=== PATIENT | male | born 1965 | race Caucasian/White ===

== ENCOUNTER 2017-01-11 01:39 | Inpatient (IN) | payer OTHER ==
--- NOTE | 2017-01-11 01:51 | HP ---
Admission [facility] Chief Complaint: i need help to stop using heroin Allergies/Adverse Reactions: Allergies Allergy/AdvReac Type Severity Reaction Status Date / Time Penicillins Allergy Verified 01/10/17 19:12 History of Present Illness: this 51 years old male with heroin dependence,withdrawal symptom,last detox 2006 at [facility] nicotine dependence depression longest period of sobriety 2 years Exam Limitations: No Limitations - Ebola screening Have you traveled outside of the country in the last 21 days: No - Review of Systems Constitutional: Chills, Diaphoresis, Loss of Appetite, Malaise, Night Sweats, Changes in sleep, Weakness, Unintentional Wgt. Loss EENT: reports: Tearing, Nose Congestion Respiratory: reports: Other (asthma) Cardiac: reports: Palpitations GI: reports: Diarrhea, Nausea, Vomiting, Abdominal cramping : reports: No Symptoms Reported Musculoskeletal: reports: Back Pain, Joint Pain, Muscle Pain, Joint Stiffness Neuro: reports: Headache, Tremors Endocrine: reports: No Symptoms Reported Hematology: reports: No Symptoms Reported Psychiatric: reports: Depressed Patient History - Patient Medical History Hx Anemia: No Hx Asthma: Yes (on albuterol and advair) Hx Chronic Obstructive Pulmonary Disease (COPD): No Hx Cancer: No Hx Cardiac Disorders: No Hx Congestive Heart Failure: No Hx Hypertension: No Hx Hypercholesterolemia: No Hx Pacemaker: No HX Cerebrovascular Accident: No Hx Seizures: No Hx Dementia: No Hx Diabetes: No Hx Gastrointestinal Disorders: No Hx Liver Disease: No Hx Genitourinary Disorders: No Hx Sexually Transmitted Disorders: No Hx Renal Disease (ESRD): No Hx Thyroid Disease: No Hx Human Immunodeficiency Virus (HIV): No (last 11/16 negative) Hx Hepatitis C: No Hx Depression: Yes (on med) Hx Suicide Attempt: No Hx Bipolar Disorder: No Hx Schizophrenia: No Other Medical History: no suicidal,o homicidal - Patient Surgical History Hx Orthopedic Surgery: Yes (left knee 20 years ago in [place]) Other Surgical History: fx of mandible 40 years ago - PPD History Previous Implant?: Yes Documented Results: Negative w/o proof Implanted On Prior [facility] Admission?: No PPD to be Administered?: Yes - Smoking Cessation Smoking history: Current every day smoker Have you smoked in the past 12 months: Yes Aproximately how many cigarettes per day: 25 Cigars Per Day: 0 Hx Chewing Tobacco Use: No Initiated information on smoking cessation: Yes 'Breaking Loose' booklet given: 01/11/17 - Substance & Tx. History Hx Alcohol Use: No Hx Substance Use: Yes Substance Use Type: Heroin Hx Substance Use Treatment: Yes (2006) - Substances Abused Heroin Route: Inhalation Frequency: Daily Amount used: 20 to 30 bags Age of first use: 16 Date of Last Use: 01/10/17 Marijuana/Hashish Route: Smoking Frequency: 1-2 times per week Amount used: 10$ Age of first use: 10 Date of Last Use: 01/09/17 Family Disease History - Family Disease History Family History: Denies Admission Physical Exam [facility] - Vital Signs Vital Signs: Vital Signs Temperature 96.4 F L 01/11/17 02:02 Pulse Rate 85 01/11/17 02:02 Respiratory Rate 20 01/11/17 02:02 Blood Pressure 156/84 01/11/17 02:02 O2 Sat by Pulse Oximetry (%) - Physical General Appearance: Yes: Moderate Distress, Tremorous, Irritable, Sweating, Anxious HEENTM: Yes: Normal ENT Inspection, Normocephalic, Pharynx Normal, Nasal Congestion, Rhinorrhea, Other (poor dental hygiene) Respiratory: Yes: Lungs Clear, Normal Breath Sounds, No Respiratory Distress Neck: Yes: Within Normal Limits, Supple, Trachea in good position Breast: Yes: Within Normal Limits Cardiology: Yes: Within Normal Limits, Regular Rhythm, Regular Rate, S1, S2 Abdominal: Yes: Within Normal Limits, Normal Bowel Sounds, Non Tender, Flat, Soft Genitourinary: Yes: Within Normal Limits Back: Yes: Muscle Spasm Musculoskeletal: Yes: Back pain, Joint Stiffness, Muscle Pain Extremities: Yes: Tremors Neurological: Yes: abalone fisherman II-XII NML intact, Fully Oriented, Alert, Motor Strength 5/5 Integumentary: Yes: Dry Lymphatic: Yes: Within Normal Limits - Diagnostic (1) Opioid dependence with withdrawal Current Visit: Yes Status: Acute (2) Nicotine dependence Current Visit: Yes Status: Acute (3) Depression Current Visit: Yes Status: Acute (4) Psoriasis Current Visit: Yes Status: Acute (5) Arthritis Current Visit: Yes Status: Acute (6) Left knee pain Current Visit: Yes Status: Acute (7) Poor dental hygiene Current Visit: Yes Status: Acute Cleared for Admission [facility] - Detox or Rehab [facility] Level of Care: Medically Managed Detox Regimen/Protocol: Methadone BHS Breath Alcohol Content Breath Alcohol Content: 0 Vital Signs - Vital Signs Vital Signs Refused: No Temperature: 96.4 F Temperature Source: Oral Pulse Rate: 85 Respiratory Rate: 20 Blood Pressure: 156/84 BP Location: Left Arm - Height Height: 5 ft 7 in - Weight Weight: 184 lb Weight Measurement Method: Standing Scale Body Mass Index (BMI): 28.8 Urine Drug Screen - Test Device Lot Number: [id number] Expiration Date: 09/29/18 - Control Is Test Valid: Yes - Results Drug Screen Negative: No Urine Drug Screen Results: THC-Marijuana, OPI-Opiates, OXY-Oxycodone
[2017-01-11 01:57] VITALS: BMI 28.8
[2017-01-11] MEDS ORDERED: MENTHOL/PHENOL 1 EACH UD MM PRN (02:13)
[2017-01-11] MEDS ORDERED: guaiFENesin/D-METHORPHAN HB 10 ML UNIT-DOSE CUPS PO PRN (02:13)
[2017-01-11] MEDS ORDERED: P-EPHED 60MG/TRIPROLIDI 2.5MG TABLET PO PRN (02:13)
[2017-01-11] MEDS ORDERED: MAG HYDROX/AL HYDROX/SIMETH 30 ML UNIT-DOSE CUP PO PRN (02:13)
[2017-01-11] MEDS ORDERED: NICOTINE POLACRILEX 2 MG GUM BUC PRN (02:13)
[2017-01-11] MEDS ORDERED: MAGNESIUM HYDROX 2400MG/30ML ORAL SUSPENSION 30 ML CUP PO PRN (02:13)
[2017-01-11] MEDS ORDERED: MAGNESIUM CITRATE 300 ML BOTTLE PO PRN (02:13)
[2017-01-11] MEDS ORDERED: LOPERAMIDE HCL 2 MG CAPSULE PO PRN (02:13)
[2017-01-11] MEDS ORDERED: METHADONE HCL 10 MG TABLET (FOR DETOX USE ONLY) PO ONE ×3 (02:13→23:00)
[2017-01-11] MEDS ORDERED: ALBUTEROL SO4 6.7 GM HFA INHALER IH PRN (02:17)
[2017-01-11] MEDS ORDERED: ALBUTEROL SO4 2.5/IPRATROPIUM 0.5 INH SOL 3 ML VIAL.NEB. NEB PRN (02:19)
[2017-01-11] MEDS: diazePAM 5 MG TABLET PO PRN ×3 (02:50→23:10)
[2017-01-11] MEDS ORDERED: BUDESONIDE/FORMETEROL FUMARATE 80/4.5 mcg INHALER IH SCH (10:00)
--- NOTE | 2017-01-11 10:35 | PN ---
[facility] Progress Note Note: PT ADMITTED EARLY THIS MORNING. ALERT O X 3. PT IN DAY ROOM HAVING BREAKFAST DURING ROUNDS. ANXIETY,SLIGHT TREMORS,SWEATS. Vital Signs Temperature 97.5 F L 01/11/17 09:40 Pulse Rate 71 01/11/17 09:40 Respiratory Rate 18 01/11/17 09:40 Blood Pressure 143/87 01/11/17 09:40 O2 Sat by Pulse Oximetry (%) Laboratory Last Values WBC 7.3 K/mm3 (4.0-10.0) 01/11/17 06:00 RBC 4.35 M/mm3 (4.00-5.60) 01/11/17 06:00 Hgb 12.7 GM/dL (11.7-16.9) 01/11/17 06:00 Hct 38.4 % (35.4-49) 01/11/17 06:00 MCV 88.5 fl (80-96) 01/11/17 06:00 MCHC 33.1 g/dl (32.0-35.9) 01/11/17 06:00 RDW 14.2 % (11.9-15.9) 01/11/17 06:00 Plt Count 219 K/MM3 (134-434) 01/11/17 06:00 MPV 8.9 fl (7.5-11.1) 01/11/17 06:00 Sodium 144 mmol/L (136-145) 01/11/17 06:00 Potassium 4.4 mmol/L (3.5-5.1) 01/11/17 06:00 Chloride 105 mmol/L (98-107) 01/11/17 06:00 Carbon Dioxide 33 mmol/L (21-32) H 01/11/17 06:00 Anion Gap 6 (8-16) L 01/11/17 06:00 BUN 17 mg/dL (7-18) 01/11/17 06:00 Creatinine 0.8 mg/dL (0.7-1.3) 01/11/17 06:00 Creat Clearance w eGFR > 60 (>60) 01/11/17 06:00 Random Glucose 79 mg/dL (74-106) 01/11/17 06:00 Calcium 8.5 mg/dL (8.5-10.1) 01/11/17 06:00 Total Bilirubin 0.2 mg/dL (0.2-1.0) 01/11/17 06:00 AST 14 U/L (15-37) L 01/11/17 06:00 ALT 17 U/L (12-78) 01/11/17 06:00 Alkaline Phosphatase 70 U/L (45-117) 01/11/17 06:00 Total Protein 5.6 g/dl (6.4-8.2) L 01/11/17 06:00 Albumin 3.0 g/dl (3.4-5.0) L 01/11/17 06:00 LABS NOTED PLAN:CONTINUE DETOX.
[2017-01-11] MEDS: PRENATAL VITAMINS W/ FOLIC ACID TABLET (FP) PO SCH (10:37)
[2017-01-11] MEDS: NICOTINE 21 MG/24 HOURS TOPICAL PATCH TD SCH (10:54)
[2017-01-11] MEDS ORDERED: BUDESONIDE/FORMETEROL FUMARATE 160/4.5 mcg INHALER IH SCH (11:00)
[2017-01-11 11:05] LABS: MCH 29.3 pg (25.7-33.7); MCHC 33.1 g/dl (32.0-35.9); MEAN CELL VOLUME 88.5 fl (80-96); MEAN PLT VOLUME 8.9 fl (7.5-11.1); PLATELET COUNT 219 K/MM3 (134-434); RDW 14.2 % (11.9-15.9); WHITE BLOOD COUNT 7.3 K/mm3 (4.0-10.0)
[2017-01-11 11:12] LABS: ALK PHOS 70 U/L (45-117); ANION GAP 6 (8-16); BILIRUBIN,TOTAL 0.2 mg/dL (0.2-1.0); CALCIUM 8.5 mg/dL (8.5-10.1); CO2 33 mmol/L (21-32); CREATININE 0.8 mg/dL (0.7-1.3); GLUCOSE,RANDOM 79 mg/dL (74-106); SGOT/AST 14 U/L (15-37); SGPT/ALT 17 U/L (12-78); TOT PROT 5.6 g/dl (6.4-8.2)
[2017-01-11] MEDS: FLUOCINONIDE 0.05% CREAM (60 GM TUBE) TP SCH ×2 (12:19→22:31)
--- NOTE | 2017-01-11 12:35 | EKG ---
Test Reason : Blood Pressure : / mmHG Vent. Rate : 075 BPM Atrial Rate : 075 BPM P-R Int : 172 ms QRS Dur : 094 ms QT Int : 392 ms P-R-T Axes : 053 058 039 degrees QTc Int : 437 ms NORMAL SINUS RHYTHM NORMAL ECG NO PREVIOUS ECGS AVAILABLE Confirmed by OSCAR STEELE MD ([id number]) on 01/11/2017 12:35:26 PM Referred By: Confirmed By:OSCAR STEELE MD
[2017-01-11 16:08] LABS: URINE APPEARANCE CLEAR; URINE BILIRUBIN NEGATIVE (NEGATIVE); URINE BLOOD NEGATIVE (NEGATIVE); URINE COLOR YELLOW; URINE GLUCOSE (UA) NEGATIVE (NEGATIVE); URINE KETONE NEGATIVE (NEGATIVE); URINE LEUK ESTERASE NEGATIVE (NEGATIVE); URINE NITRITE NEGATIVE (NEGATIVE); URINE PROTEIN NEGATIVE (NEGATIVE); URINE UROBILINOGEN NEGATIVE E.U./dl (0.2-1.0)
--- NOTE | 2017-01-11 18:30 | CONSULT ---
[facility] Psychiatric Consult - Data Date of interview: 01/11/17 Admission source: [facility] Identifying data: First admission to [facility] for this 51 y/o male seeking detox treatment on for heroin and marijuana dependence.Patient is ,a father of four,homeless,unemployed and deprived of any source of income. Substance Abuse History: - Smoking Cessation. Smoking history: Current every day smoker. Have you smoked in the past 12 months: Yes. Aproximately how many cigarettes per day: 25. Cigars Per Day: 0. Hx Chewing Tobacco Use: No. Initiated information on smoking cessation: Yes. 'Breaking Loose' booklet given : 01/11/17. - Substance & Tx. History. Hx Alcohol Use: No. Hx Substance Use: Yes. Substance Use Type: Heroin. Hx Substance Use Treatment: Yes (2006). - Substances Abused. Heroin. Route: Inhalation. Frequency: Daily. Amount used: 20 to 30 bags. Age of first use: 16. Date of Last Use: 01/10/17. Marijuana/Hashish. Route: Smoking. Frequency: 1-2 times per week. Amount used : 10$. Age of first use: 10. Date of Last Use: 01/09/17. Patient confirmed. Medical History: Bronchial asthma,arthritis and a history of orthosurgery for fracture of left knee (20 years ago)/fracture of mandible about 40 years ago. Psychiatric History: No history of psychiatric hospitalizations.Prescribed effexor 75 mg po bid by his primary care doctor.Diagnosed with MDD.Mr Heaton denies history of suicide attempts. Physical/Sexual Abuse/Trauma History: Patient denies. Additional Comment: Urine Drug Screen Results: THC-Marijuana, OPI-Opiates, OXY- Oxycodone.Noted. Mental Status Exam - Mental Status Exam Alert and Oriented to: Time, Place, Person Cognitive Function: Good Patient Appearance: Disheveled Mood: Nervous, Withdrawn, Anxious, Apprehensive Affect: Mood Congruent Patient Behavior: Fatigued, Appropriate, Cooperative Speech Pattern: Clear Voice Loudness: Normal Thought Process: Goal Oriented Thought Disorder: Not Present Hallucinations: Denies Suicidal Ideation: Denies Homicidal Ideation: Denies Insight/Judgement: Poor Sleep: Fair Appetite: Good Muscle strength/Tone: Normal Gait/Station: Other (walks with cane.) Psychiatric Findings - Problem List ([place] 1, 2,3) (1) Opioid dependence with withdrawal Current Visit: Yes Status: Acute (2) Nicotine dependence Current Visit: Yes Status: Acute (3) Cannabis dependence Current Visit: Yes Status: Acute (4) Substance induced mood disorder Current Visit: Yes Status: Acute (5) Depressive disorder Current Visit: Yes Status: Chronic Comment: History. (6) Arthritis Current Visit: Yes Status: Acute (7) Psoriasis Current Visit: Yes Status: Acute - Initial Treatment Plan Initial Treatment Plan: Psychoeducation.Detoxification.Effexor 75 mg po bid.Side effects/benefits discusssed with patient.He agrees with this careplan.Observation.No scripts needed at discharge (available supply at home and refills from outpatient provider).
[2017-01-11] MEDS: THIAMINE HCL 100 MG TABLET (FP) PO SCH (22:32)
[2017-01-11] MEDS: BUDESONIDE/FORMETEROL FUMARATE 160/4.5 mcg INHALER IH SCH (22:32)
[2017-01-11] MEDS: MONTELUKAST NA 10 MG TABLET PO SCH (22:33)
[2017-01-11] MEDS: diphenhydrAMINE HCL 50 MG CAPSULE PO PRN (22:33)
[2017-01-11] MEDS: ACETAMINOPHEN 325 MG TABLET (FP) PO PRN (22:34)
[2017-01-11] MEDS: VENLAFAXINE HCL 75 MG TABLET PO SCH (23:08)
[2017-01-12] MEDS: diazePAM 5 MG TABLET PO PRN ×3 (06:03→22:38)
[2017-01-12] MEDS ORDERED: METHADONE HCL 10 MG TABLET (FOR DETOX USE ONLY) PO ONE (10:00)
[2017-01-12] MEDS: PRENATAL VITAMINS W/ FOLIC ACID TABLET (FP) PO SCH (10:38)
[2017-01-12] MEDS: VENLAFAXINE HCL 75 MG TABLET PO SCH ×2 (10:38→22:38)
[2017-01-12] MEDS: BUDESONIDE/FORMETEROL FUMARATE 160/4.5 mcg INHALER IH SCH ×2 (10:38→22:38)
[2017-01-12] MEDS: FLUOCINONIDE 0.05% CREAM (60 GM TUBE) TP SCH ×2 (10:38→23:11)
[2017-01-12] MEDS: NICOTINE 21 MG/24 HOURS TOPICAL PATCH TD SCH (10:39)
[2017-01-12] MEDS: ACETAMINOPHEN 325 MG TABLET (FP) PO PRN ×2 (10:40→22:41)
--- NOTE | 2017-01-12 11:25 | PN ---
BHS COWS - Scale Resting Pulse: 0= [place] 80 or Below Sweatin= Chills/Flushing Restless Observation: 3= Extraneous Movement Pupil Size: 2= Moderately Dilated Bone or Joint Aches: 4=Acute Joint/Muscle Pain Runny Nose/ Eye Tearin= Nasal Congestion GI Upset > 30mins: 1= Stomach Cramp Tremor Observation of Outstretched Hands: 1= Tremor [place], Not Seen Yawning Observation: 1= 1-2x During Session Anxiety or Irritability: 1=Feels Anxious/Irritable Goose Flesh Skin: 0=Smooth Skin COWS Score: 15 S Progress Note (SOAP) Subjective: ANXIETY,SWEATS/CHILLS,FATIGUE,INTERMITTENT SLEEP. Objective: Vital Signs Temperature 97.8 F 01/12/17 09:41 Pulse Rate 67 01/12/17 09:41 Respiratory Rate 20 01/12/17 09:41 Blood Pressure 156/96 01/12/17 09:41 O2 Sat by Pulse Oximetry (%) Laboratory Last Values WBC 7.3 K/mm3 (4.0-10.0) 01/11/17 06:00 RBC 4.35 M/mm3 (4.00-5.60) 01/11/17 06:00 Hgb 12.7 GM/dL (11.7-16.9) 01/11/17 06:00 Hct 38.4 % (35.4-49) 01/11/17 06:00 MCV 88.5 fl (80-96) 01/11/17 06:00 MCHC 33.1 g/dl (32.0-35.9) 01/11/17 06:00 RDW 14.2 % (11.9-15.9) 01/11/17 06:00 Plt Count 219 K/MM3 (134-434) 01/11/17 06:00 MPV 8.9 fl (7.5-11.1) 01/11/17 06:00 Sodium 144 mmol/L (136-145) 01/11/17 06:00 Potassium 4.4 mmol/L (3.5-5.1) 01/11/17 06:00 Chloride 105 mmol/L (98-107) 01/11/17 06:00 Carbon Dioxide 33 mmol/L (21-32) H 01/11/17 06:00 Anion Gap 6 (8-16) L 01/11/17 06:00 BUN 17 mg/dL (7-18) 01/11/17 06:00 Creatinine 0.8 mg/dL (0.7-1.3) 01/11/17 06:00 Creat Clearance w eGFR > 60 (>60) 01/11/17 06:00 Random Glucose 79 mg/dL (74-106) 01/11/17 06:00 Calcium 8.5 mg/dL (8.5-10.1) 01/11/17 06:00 Total Bilirubin 0.2 mg/dL (0.2-1.0) 01/11/17 06:00 AST 14 U/L (15-37) L 01/11/17 06:00 ALT 17 U/L (12-78) 01/11/17 06:00 Alkaline Phosphatase 70 U/L (45-117) 01/11/17 06:00 Total Protein 5.6 g/dl (6.4-8.2) L 01/11/17 06:00 Albumin 3.0 g/dl (3.4-5.0) L 01/11/17 06:00 Urine Color Yellow 01/11/17 13:00 Urine Appearance Clear 01/11/17 13:00 Urine pH 5.0 (5.0-8.0) 01/11/17 13:00 Ur Specific [place] 1.021 (1.001-1.035) 01/11/17 13:00 Urine Protein Negative (NEGATIVE) 01/11/17 13:00 Urine Glucose (UA) Negative (NEGATIVE) 01/11/17 13:00 Urine Ketones Negative (NEGATIVE) 01/11/17 13:00 Urine Blood Negative (NEGATIVE) 01/11/17 13:00 Urine Nitrite Negative (NEGATIVE) 01/11/17 13:00 Urine Bilirubin Negative (NEGATIVE) 01/11/17 13:00 Urine Urobilinogen Negative E.U./dl (0.2-1.0) 01/11/17 13:00 Ur Leukocyte Esterase Negative (NEGATIVE) 01/11/17 13:00 RPR Titer Nonreactive (NONREACTIVE) 01/11/17 06:00 Assessment: 01/12/17 11:24 WITHDRAWAL SX Plan: CONTINUE DETOX
[2017-01-12] MEDS: cloNIDine HCL 0.1 MG TABLET PO SCH ×2 (13:43→22:38)
[2017-01-12] MEDS: MONTELUKAST NA 10 MG TABLET PO SCH (22:38)
[2017-01-12] MEDS: THIAMINE HCL 100 MG TABLET (FP) PO SCH (22:38)
[2017-01-13] MEDS: diazePAM 5 MG TABLET PO PRN ×3 (05:46→22:34)
[2017-01-13] MEDS: ACETAMINOPHEN 325 MG TABLET (FP) PO PRN ×3 (05:47→17:47)
[2017-01-13] MEDS: cloNIDine HCL 0.1 MG TABLET PO SCH ×2 (09:33→22:32)
[2017-01-13] MEDS: PRENATAL VITAMINS W/ FOLIC ACID TABLET (FP) PO SCH (09:34)
[2017-01-13] MEDS: VENLAFAXINE HCL 75 MG TABLET PO SCH ×2 (09:34→22:32)
[2017-01-13] MEDS: FLUOCINONIDE 0.05% CREAM (60 GM TUBE) TP SCH ×2 (09:35→23:13)
[2017-01-13] MEDS: BUDESONIDE/FORMETEROL FUMARATE 160/4.5 mcg INHALER IH SCH ×2 (09:35→22:32)
[2017-01-13] MEDS: NICOTINE 21 MG/24 HOURS TOPICAL PATCH TD SCH (09:35)
[2017-01-13] MEDS ORDERED: METHADONE HCL 5 MG TABLET (FOR DETOX USE ONLY) PO ONE (10:00)
--- NOTE | 2017-01-13 10:29 | PN ---
BHS COWS - Scale Resting Pulse: 0= [place] 80 or Below Sweatin= Chills/Flushing Restless Observation: 3= Extraneous Movement Pupil Size: 2= Moderately Dilated Bone or Joint Aches: 4=Acute Joint/Muscle Pain Runny Nose/ Eye Tearin= Nasal Congestion GI Upset > 30mins: 1= Stomach Cramp Tremor Observation of Outstretched Hands: 2= Slight Tremor Visible Yawning Observation: 2= >3x During Session Anxiety or Irritability: 2=Irritable/Anxious Goose Flesh Skin: 0=Smooth Skin COWS Score: 18 BHS Progress Note (SOAP) Subjective: ANXIETY,HEADACHE,IRRITABILITY,SWATS/CHILLS,STOMACH /LEG CRAMPS. PT NOW STATES THAT HE HAS A HX OF HTN AND WAS GIVEN MEDICATION A LONG TIME AGO BUT DON'T REMEMBER NAME AND DID NOT TAKE IT. MEANWHILE BP IS VERY ELEVATED. Objective: 01/13/17 10:28 Vital Signs 01/13/17 01/13/17 01/13/17 03:23 06:53 09:53 Temperature 97.1 F L 97.8 F Pulse Rate 67 73 Respiratory 18 16 18 Rate Blood Pressure 171/85 168/102 01/13/17 10:02 Temperature 97.8 F Pulse Rate 73 Respiratory 18 Rate Blood Pressure 168/102 Assessment: 01/13/17 10:28 WITHDRAWAL SX UNCONTROLLED BP Plan: CONTINUE DETOX HYDROCHLOROTHIAZIDE 25 MG PO DAILY
[2017-01-13] MEDS: HYDROCHLOROTHIAZIDE 25 MG TABLET (FP) PO SCH (11:14)
[2017-01-13] MEDS: IBUPROFEN 400 MG TABLET (FP) PO PRN (12:27)
[2017-01-13] MEDS: THIAMINE HCL 100 MG TABLET (FP) PO SCH (22:31)
[2017-01-13] MEDS: MONTELUKAST NA 10 MG TABLET PO SCH (23:15)
[2017-01-14] MEDS: hydrOXYzine PAMOATE 50 MG CAPSULE (FP) PO PRN (05:49)
[2017-01-14] MEDS: IBUPROFEN 400 MG TABLET (FP) PO PRN (05:49)
[2017-01-14] MEDS ORDERED: METHADONE HCL 5 MG TABLET (FOR DETOX USE ONLY) PO ONE (10:00)
[2017-01-14] MEDS: PRENATAL VITAMINS W/ FOLIC ACID TABLET (FP) PO SCH (10:34)
[2017-01-14] MEDS: cloNIDine HCL 0.1 MG TABLET PO SCH ×2 (10:34→22:39)
[2017-01-14] MEDS: HYDROCHLOROTHIAZIDE 25 MG TABLET (FP) PO SCH (10:34)
[2017-01-14] MEDS: BUDESONIDE/FORMETEROL FUMARATE 160/4.5 mcg INHALER IH SCH ×2 (10:34→22:40)
[2017-01-14] MEDS: FLUOCINONIDE 0.05% CREAM (60 GM TUBE) TP SCH ×2 (10:35→22:39)
[2017-01-14] MEDS: NICOTINE 21 MG/24 HOURS TOPICAL PATCH TD SCH (10:35)
[2017-01-14] MEDS: VENLAFAXINE HCL 75 MG TABLET PO SCH ×2 (10:35→22:39)
--- NOTE | 2017-01-14 11:52 | PN ---
BHS Progress Note (SOAP) Subjective: FATIGUE, ANXIETY, HOT/COLD SWEATS. HEADACHE RESOLVED. Objective: 01/14/17 11:52 Vital Signs 01/14/17 01/14/17 01/14/17 06:36 07:07 10:40 Temperature 98.3 F 97.3 F L Pulse Rate 71 54 L 64 Respiratory 18 16 Rate Blood Pressure 141/99 147/76 130/88 Assessment: 01/14/17 11:52 WITHDRAWAL SX Plan: CONTINUE DETOX
[2017-01-14] MEDS: THIAMINE HCL 100 MG TABLET (FP) PO SCH (22:39)
[2017-01-14] MEDS: MONTELUKAST NA 10 MG TABLET PO SCH (22:39)
[2017-01-14] MEDS: diphenhydrAMINE HCL 50 MG CAPSULE PO PRN (22:41)
[2017-01-15] MEDS: hydrOXYzine PAMOATE 50 MG CAPSULE (FP) PO PRN (05:38)
[2017-01-15] MEDS ORDERED: METHADONE HCL 10 MG TABLET (FOR DETOX USE ONLY) PO ONE (10:00)
[2017-01-15] MEDS: cloNIDine HCL 0.1 MG TABLET PO SCH ×2 (10:49→22:50)
[2017-01-15] MEDS: PRENATAL VITAMINS W/ FOLIC ACID TABLET (FP) PO SCH (10:49)
[2017-01-15] MEDS: HYDROCHLOROTHIAZIDE 25 MG TABLET (FP) PO SCH (10:49)
[2017-01-15] MEDS: VENLAFAXINE HCL 75 MG TABLET PO SCH ×2 (10:50→22:50)
[2017-01-15] MEDS: BUDESONIDE/FORMETEROL FUMARATE 160/4.5 mcg INHALER IH SCH ×2 (10:50→22:51)
[2017-01-15] MEDS: FLUOCINONIDE 0.05% CREAM (60 GM TUBE) TP SCH ×2 (10:50→22:51)
[2017-01-15] MEDS: NICOTINE 21 MG/24 HOURS TOPICAL PATCH TD SCH (10:50)
--- NOTE | 2017-01-15 16:24 | PN ---
S Progress Note (SOAP) Subjective: Tremors, back ache, Interrupted sleep. Objective: PT. A & O X 3, OBSERVED AMBULATING ON UNIT. 01/15/17 16:23 Vital Signs Temperature 97.4 F L 01/15/17 13:32 Pulse Rate 86 01/15/17 13:32 Respiratory Rate 18 01/15/17 13:32 Blood Pressure 120/74 01/15/17 13:32 O2 Sat by Pulse Oximetry (%) Laboratory Last Values WBC 7.3 K/mm3 (4.0-10.0) 01/11/17 06:00 RBC 4.35 M/mm3 (4.00-5.60) 01/11/17 06:00 Hgb 12.7 GM/dL (11.7-16.9) 01/11/17 06:00 Hct 38.4 % (35.4-49) 01/11/17 06:00 MCV 88.5 fl (80-96) 01/11/17 06:00 MCHC 33.1 g/dl (32.0-35.9) 01/11/17 06:00 RDW 14.2 % (11.9-15.9) 01/11/17 06:00 Plt Count 219 K/MM3 (134-434) 01/11/17 06:00 MPV 8.9 fl (7.5-11.1) 01/11/17 06:00 Sodium 144 mmol/L (136-145) 01/11/17 06:00 Potassium 4.4 mmol/L (3.5-5.1) 01/11/17 06:00 Chloride 105 mmol/L (98-107) 01/11/17 06:00 Carbon Dioxide 33 mmol/L (21-32) H 01/11/17 06:00 Anion Gap 6 (8-16) L 01/11/17 06:00 BUN 17 mg/dL (7-18) 01/11/17 06:00 Creatinine 0.8 mg/dL (0.7-1.3) 01/11/17 06:00 Creat Clearance w eGFR > 60 (>60) 01/11/17 06:00 Random Glucose 79 mg/dL (74-106) 01/11/17 06:00 Calcium 8.5 mg/dL (8.5-10.1) 01/11/17 06:00 Total Bilirubin 0.2 mg/dL (0.2-1.0) 01/11/17 06:00 AST 14 U/L (15-37) L 01/11/17 06:00 ALT 17 U/L (12-78) 01/11/17 06:00 Alkaline Phosphatase 70 U/L (45-117) 01/11/17 06:00 Total Protein 5.6 g/dl (6.4-8.2) L 01/11/17 06:00 Albumin 3.0 g/dl (3.4-5.0) L 01/11/17 06:00 Urine Color Yellow 01/11/17 13:00 Urine Appearance Clear 01/11/17 13:00 Urine pH 5.0 (5.0-8.0) 01/11/17 13:00 Ur Specific [place] 1.021 (1.001-1.035) 01/11/17 13:00 Urine Protein Negative (NEGATIVE) 01/11/17 13:00 Urine Glucose (UA) Negative (NEGATIVE) 01/11/17 13:00 Urine Ketones Negative (NEGATIVE) 01/11/17 13:00 Urine Blood Negative (NEGATIVE) 01/11/17 13:00 Urine Nitrite Negative (NEGATIVE) 01/11/17 13:00 Urine Bilirubin Negative (NEGATIVE) 01/11/17 13:00 Urine Urobilinogen Negative E.U./dl (0.2-1.0) 01/11/17 13:00 Ur Leukocyte Esterase Negative (NEGATIVE) 01/11/17 13:00 RPR Titer Nonreactive (NONREACTIVE) 01/11/17 06:00 Hepatitis C Antibody <0.1 s/co ratio (0.0-0.9) 01/11/17 06:00 LABS NOTED. Assessment: 01/15/17 16:24 WITHDRAWAL SYMPTOMS. Plan: CONTINUE DETOX. ADVISED PATIENT TO FOLLOW-UP WITH SALES AND OPERATIONS TRAINEE / REHAB MEDICAL PROVIDER AFTER DISCHARGE FROM DETOX FOR GENERAL MEDICAL ASSESSMENT AND FOR ANY ABNORMAL ADMISSION LAB VALUES.
[2017-01-15] MEDS: THIAMINE HCL 100 MG TABLET (FP) PO SCH (22:49)
[2017-01-15] MEDS: MONTELUKAST NA 10 MG TABLET PO SCH (22:49)
[2017-01-15] MEDS: diphenhydrAMINE HCL 50 MG CAPSULE PO PRN (22:50)
[2017-01-16] MEDS ORDERED: METHADONE HCL 5 MG TABLET (FOR DETOX USE ONLY) PO ONE (06:00)
[2017-01-16 06:44] VITALS: BP 116/83; PULSE 73; TEMP 96.6
--- NOTE | 2017-01-16 10:21 | DS ---
[facility] Detox Discharge Summary Admission Date: 01/11/17 Discharge Date: 01/16/17 - History Present History: Opioid Dependence Pertinent Past History: Asthma, mild intermittent - Physical Exam Results Vital Signs: Vital Signs Temperature 96.6 F L 01/16/17 06:43 Pulse Rate 73 01/16/17 06:43 Respiratory Rate 18 01/16/17 06:43 Blood Pressure 116/83 01/16/17 06:43 O2 Sat by Pulse Oximetry (%) Pertinent Admission Physical Exam Findings: Withdrawal symptoms Laboratory Tests 01/11/17 01/11/17 01/11/17 06:00 06:00 06:00 WBC 7.3 RBC 4.35 Hgb 12.7 Hct 38.4 MCV 88.5 MCHC 33.1 RDW 14.2 Plt Count 219 MPV 8.9 Sodium 144 Potassium 4.4 Chloride 105 Carbon Dioxide 33 H Anion Gap 6 L BUN 17 Creatinine 0.8 Creat Clearance w eGFR > 60 Random Glucose 79 Calcium 8.5 Total Bilirubin 0.2 AST 14 L ALT 17 Alkaline Phosphatase 70 Total Protein 5.6 L Albumin 3.0 L Urine Color Urine Appearance Urine pH Ur Specific [place] Urine Protein Urine Glucose (UA) Urine Ketones Urine Blood Urine Nitrite Urine Bilirubin Urine Urobilinogen Ur Leukocyte Esterase RPR Titer Hepatitis C Antibody <0.1 01/11/17 01/11/17 06:00 13:00 WBC RBC Hgb Hct MCV MCHC RDW Plt Count MPV Sodium Potassium Chloride Carbon Dioxide Anion Gap BUN Creatinine Creat Clearance w eGFR Random Glucose Calcium Total Bilirubin AST ALT Alkaline Phosphatase Total Protein Albumin Urine Color Yellow Urine Appearance Clear Urine pH 5.0 Ur Specific [place] 1.021 Urine Protein Negative Urine Glucose (UA) Negative Urine Ketones Negative Urine Blood Negative Urine Nitrite Negative Urine Bilirubin Negative Urine Urobilinogen Negative Ur Leukocyte Esterase Negative RPR Titer Nonreactive Hepatitis C Antibody Labs noted - Treatment Hospital Course: Detox Protocol Followed, Detoxed Safely, Responded well, Discharged Condition Good - Medication Discharge Medications: Ambulatory Orders Budesonide/Formeterol Fumarate [SYMBICORT 160/4.5mcg -] 2 inh PO BID 01/11/17 Montelukast Na [Singulair -] 10 mg PO HS 01/11/17 Venlafaxine HCl [Effexor -] 75 mg PO BID 01/11/17 - Diagnosis (1) Depression Status: Chronic (2) Nicotine dependence Status: Chronic Qualifiers: Nicotine product type: cigarettes (3) Opioid dependence with withdrawal Status: Acute (4) Asthma, mild intermittent Status: Chronic Qualifiers: Asthma complication type: uncomplicated Qualified Code(s): J45.20 - Mild intermittent asthma, uncomplicated - AMA Did Patient Leave Against Medical Advice: No
== END 2017-01-16 07:20 | disposition home or self-care (01) | DRG 773 ==
LOC: YASAS 01:39 → Y3N 01:43
PROVIDERS: ADMIT Internal Medicine Addiction Medicine; ATTEND Internal Medicine
PROC: HZ2ZZZZ Detoxification Services for Substance Abuse Treatment (ICD-10-PCS; principal; 2017-01-11)
DX: F11.23 Opioid dependence with withdrawal (principal); F12.20 Cannabis dependence, uncomplicated; F17.210 Nicotine dependence, cigarettes, uncomplicated; F19.24 Other psychoactive substance dependence with psychoactive substance-induced mood disorder; F32.9 Major depressive disorder, single episode, unspecified; J45.20 Mild intermittent asthma, uncomplicated; I10 Essential (primary) hypertension; M19.90 Unspecified osteoarthritis, unspecified site; L40.9 Psoriasis, unspecified; K08.9 Disorder of teeth and supporting structures, unspecified
CPT/HCPCS: 36415; 80053; 81003; 85027; 86593; 93005; 93010